=== PATIENT | male | born 1950 | race Caucasian/White ===

== ENCOUNTER 2023-12-19 01:01 | Day surgery (SDC) | payer MEDICARE, SELFPAY ==
[2023-12-04 13:30] VITALS: BMI 22.6
[2023-12-19 11:25] VITALS: BP 123/69; PULSE 82; RESP 16; TEMP 36.3; O2SAT 100; BMI 21.6
[2023-12-19] MEDS: LACTATED RINGERS 1,000 ML 150 ML IV CONT (11:51)
--- NOTE | 2023-12-19 12:45 | WPDHPUPDATE1 ---
History and Physical Update Update Date/Time: 12/19/23 12:45 History and Physical has been reviewed, including an updated exam of the patient. There are NO changes in the patient's condition. Risks, benefits, and alternatives have been discussed and questions answered. Patient agrees to proceed with procedure.
--- NOTE | 2023-12-19 12:47 | P.PNAN_ITS ---
Anes - Initial Pre Proc Eval Procedure: Operation Date: 12/19/23 13:30 Proposed Procedures p Esophagogastroduodenoscopy&Screen Colon - Bruce Olson MD Date/Time: 12/19/23 12:47 Surgeon: Bruce Olson MD Pre Op Diagnosis: Dysphagia, Neoplasm screening Patient Data Age: 73 Gender: M Height: 1.85 m Weight: 74.3 kg Last Vital Signs Temp 97.4 F L 12/19/23 11:25 Pulse 82 12/19/23 11:25 Resp 16 12/19/23 11:25 BP 123/69 12/19/23 11:25 Pulse Ox 100 12/19/23 11:25 O2 Del Method Room Air 12/19/23 11:25 Allergies Allergy/AdvReac Type Severity Reaction Status Date / Time No Known Allergies Allergy Unverified 12/19/23 11:38 Home Medications Medication Instructions Recorded Confirmed Type magnesium amino acid chelate 100 100 mg PO DAILY 11/26/23 12/04/23 History mg tablet tramadol 50 mg tablet 50 mg PO Q6H PRN Pain 11/26/23 12/04/23 History vitamins A,C,P-epzg-oldiiw 4,296 1 cap PO QAM AND QPM 11/26/23 12/04/23 History mcg-226 mg-90 mg capsule (PreserVision AREDS) meloxicam 15 mg tablet 15 mg PO DAILY 12/04/23 12/04/23 History Patient hx anesthesia problems: none Family hx anesthesia problems: none Results Review: All pre-operative results and documents have been reviewed as part of the pre- operative evaluation. [facility] Surgical History Surgical History History of cervical spinal surgery Hx of bilateral cataract extraction Hx of carpal tunnel repair Hx of fusion of cervical spine Hx of right inguinal hernia repair Social History Social History Smoking status: Never smoker Substance use type: does not use Living arrangements: with family Spiritual care concerns: No Anes - Eval Final PreProcedure Day of Procedure 12/19/23 12:47 Patient weight: normal Heart: regular rate and rhythm Lungs: clear to auscultation Airway: Mallampati scale and special considerations (Pt w sig limitation w flexion from prev neck surgery/fusion. ) Neurological: alert and oriented Last oral intake: >/= 8 hours ASA classification: II Emergent: no Anesthetic plan: proceed Anesthesia type and monitoring: general GIVS and standard monitoring Results Review: All pre-operative results and documents have been reviewed as part of the pre- operative evaluation. Informed Consent: The patient's anesthetic plan and its attendant risks and benefits were discussed with the patient/family/POA. Questions were solicited and answers provided to the satisfaction of the patient/family/POA.
--- NOTE | 2023-12-19 13:09 | SUR.OPER ---
EGD completed at 1302, colonoscopy started at 1308.
[2023-12-19 13:20] VITALS: BP 126/67; PULSE 70; RESP 18; O2SAT 97
[2023-12-19 13:30] VITALS: BP 120/79; PULSE 74; RESP 18; O2SAT 98
[2023-12-19 13:40] VITALS: BP 133/72; PULSE 70; RESP 18; O2SAT 98
== END 2023-12-19 13:54 | disposition home or self-care (01) ==
PROVIDERS: Referring Provider Nurse Practitioner; Visit Provider Internal Medicine Gastroenterology
PROC: 0DJ08ZZ Inspection of Upper Intestinal Tract, Via Natural or Artificial Opening Endoscopic (ICD-10-PCS; CPT 43235; principal; 2023-12-19 13:30)
DX: Z12.11 Encounter for screening for malignant neoplasm of colon (principal); D12.5 Benign neoplasm of sigmoid colon; K57.30 Diverticulosis of large intestine without perforation or abscess without bleeding; K64.8 Other hemorrhoids; K44.9 Diaphragmatic hernia without obstruction or gangrene; Z98.1 Arthrodesis status
CPT/HCPCS: 45385; 43239; 88305; J2001; J2704; J7120